=== PATIENT | female | born 2000 | race Caucasian/White ===

== ENCOUNTER 2019-05-29 00:41 | Emergency (ER) | payer OTHER, SELFPAY ==
--- NOTE | ~2019-05-29 | XR_ITS ---
EXAMINATION: XR abdomen/kub 1V DATE: 05/29/2019 02:30 INDICATION: Left flank pain. TECHNIQUE: A supine view of the abdomen on 2 radiographs was obtained. COMPARISON: CT abdomen and pelvis 05/29/2019 FINDINGS: There are no dilated loops of bowel. There is a 3 mm stone in proximal left ureter. IMPRESSION: 1. 3 mm stone in proximal left ureter. Reviewed, dictated and finalized at location A. OPERATIONS SPECIALIST
--- NOTE | ~2019-05-29 | CT_ITS ---
EXAMINATION: CT abdomen pelvis wo con DATE: 05/29/2019 01:52 INDICATION: Left flank pain. TECHNIQUE: Computed tomography (CT) of the abdomen and pelvis was performed without intravenous contr ast. Automated exposure control and iterative reconstruction technique were employed. The dose-length product was 346.49 mGy-cm. COMPARISON: None. FINDINGS: The visualized portions of the lung bases are clear without pneumonia or pleural effusion. The heart size is normal. No pericardial effusion. The liver, gallbladder, spleen, pancreas, adrenal glands, and right kidney are normal. There is a 2 mm stone in left kidney. There is mild left hydrone phrosis. There is a 3 mm stone in proximal left ureter. There are no dilated loops of bowel. The appe ndix is normal. There is a ring shaped device in the vagina. There are no pathologically enlarged lym ph nodes. There is no free intraperitoneal fluid. There are Schmorl's nodes in the thoracic spine. IMPRESSION: 1. 3 mm stone in proximal left ureter with mild left hydronephrosis. 2. 2 mm nonobstructing left kidney stone. Reviewed, dictated and finalized at location A. E OPERATOR
[2019-05-29 00:45] VITALS: BP 132/74; PULSE 75; RESP 25; TEMP 36.7; O2SAT 100
--- NOTE | 2019-05-29 01:07 | ED.ABDPAIN ---
HPI - Abdominal Pain General Chief Complaint: Abdominal Pain Stated Complaint: ABD pain Time Seen by Provider: 05/29/19 01:07 History of Present Illness HPI narrative: The pt is a 19 y/o female who presents to the ED with c/o LLQ ABD pain that began 1 hour ago. The pt states that she woke up in pain tonight, describing it as a sharp pain that radiates to her back. She reports hematuria, vomiting, and nausea, but denies dysuria or fever. The pt has a PMHx of a UTI and kidney stones which she normally passes on her own. She does not see a urologist but does see Earline Linares PA-C. She has a SHx of wisdom teeth extraction but denies any ABD surgery. Her LKMP was 4 weeks ago. The pt has a Nuva ring and states that there is no chance of . MD elicited complaint: abdominal pain (LLQ) Pertinent past history: kidney stones and past UTI Onset (ago): hour(s) (1) Location: LLQ Quality: sharp Radiation: back Associated symptoms: nausea, vomiting and hematuria Related Data Home Medications Medication Instructions Recorded Confirmed No Home Medications 05/29/19 05/29/19 Allergies Allergy/AdvReac Type Severity Reaction Status Date / Time No Known Allergies Allergy Verified 05/29/19 00:47 Review of Systems Review of Systems: Narrative: CONSTITUTIONAL: Denies fever. GASTROINTESTINAL: Reports LLQ abdominal pain, nausea, and vomiting. GENITOURINARY: Reports hematuria. Denies dysuria. All systems reviewed & are unremarkable except as noted in HPI and below PMFSH Past Medical History Medical History (Updated 05/29/19 @ 02:15 by Meena Mcpherson MD) Kidney stones UTI (urinary tract infection) Surgical History Surgical History (Updated 05/29/19 @ 01:23 by Isis Rao) [place] teeth extracted Social History Social History (Updated 05/29/19 @ 01:35 by Isis Rao) Smoking status: Never smoker Gender identity (if verbalized by the patient): Female Exam Narrative: Exam Narrative: GENERAL: Well-nourished and uncomfortable-appearing. HEAD: Normocephalic, atraumatic. EYES: PERRLA and EOMI. ENT: Nares clear, no rhinorrhea or epistaxis. Mucous membranes moist. NECK: Supple. CHEST: Clear to auscultation. No respiratory distress. HEART: Regular rate and rhythm. No murmur heard. Normal peripheral pulses. ABDOMEN: Soft, diffuse ABD tenderness that is worse in LLQ, nondistended, guarding, normal active bowel sounds. EXTREMITIES: Normal range of motion. No edema. SKIN: Warm, dry, no rash. NEURO: No focal deficits. Alert and oriented X3. Course Course Emergency Course: Patient presented to the emergency department for evaluation of left flank pain. Patient has a history of nephrolithiasis, not currently following with a urologist. Patient was given IV pain medication, fluids, antiemetic with good resolution in her pain. Patient has a leukocytosis, no UTI, and a 3 mm left proximal stone. We will obtain a KUB, patient will be given urology follow-up, and was discharged home with pain medication in stable condition. Vital Signs Vital signs: Vital Signs Temperature 36.7 C 05/29/19 00:45 Pulse Rate 75 05/29/19 00:45 Respiratory Rate 25 H 05/29/19 00:45 Blood Pressure 132/74 05/29/19 00:45 Pulse Oximetry 100 05/29/19 00:45 Temperature 36.7 C 05/29/19 00:45 Pulse Rate 75 05/29/19 00:45 Respiratory Rate 25 H 05/29/19 00:45 Blood Pressure 132/74 05/29/19 00:45 Pulse Oximetry 100 05/29/19 00:45 MDM - Abdominal Pain Lab Data Result diagrams: 05/29/19 01:14 05/29/19 01:14 Labs: Lab Results 05/29/19 05/29/19 05/29/19 Range/Units 01:14 01:14 01:16 WBC 13.0 H (4.5-10.0) K/mm3 RBC 4.17 L (4.2-5.4) M/mm3 Hgb 12.1 (12.0-15.0) g/dL Hct 37.0 (37.0-47.0) % MCV 88.7 (80-100) fl MCH 29.0 (26-34) pg MCHC 32.7 (32-36) g/dl RDW 12.5 (11.5-14.5) % Plt Count 294 (150-375) k/mm3 MPV 10.6 H (7.
[2019-05-29] MEDS: DICYCLOMINE HCL INJ 20 MG/2 ML VIAL IM (01:16)
[2019-05-29] MEDS: FAMOTIDINE 20 MG/2 ML VIAL IV PUSH (01:17)
[2019-05-29] MEDS: SODIUM CHLORIDE 0.9% IV 2,000 ML 999 ML IV CONT (01:17)
[2019-05-29] MEDS: ONDANSETRON INJ 4 MG/2 ML VIAL IV PUSH (01:17)
[2019-05-29 01:25] LABS: Basophils Absolute Auto 0.1 K/mm3 (0.0-0.1); Basophils Percent Auto 0.5 % (0.2-1.2); Eosinophils Absolute Auto 0.1 K/mm3 (0-0.3); Hemoglobin 12.1 g/dL (12.0-15.0); Immature Granulocyte Absolute 0.04 K/mm3 (0.00-0.031); Immature Granulocyte Percent A 0.3 % (0-0.5); Lymphocytes Absolute Auto 4.63 K/mm3 (0.9-3.2); Lymphocytes Percent Auto 35.6 % (18.3-44.2); Mean Corpuscular HGB Conc 32.7 g/dl (32-36); Mean Corpuscular Volume 88.7 fl (80-100); Mean Platelet Volume 10.6 fl (7.4-10.4); Monocytes Absolute Auto 0.8 K/mm3 (0.1-0.6); Neutrophils Absolute Auto 7.3 K/mm3 (1.3-6.7); Neutrophils Percent Auto 56.6 % (45.5-73.1); Platelet Count Result 294 k/mm3 (150-375); Red Blood Count 4.17 M/mm3 (4.2-5.4); Red Cell Distribution Width 12.5 % (11.5-14.5)
[2019-05-29 01:33] LABS: Add Urine Microscopic? YES; Appearance Urine Cloudy (Clear); Bacteria Urine Trace /hpf; Bilirubin Urine Negative (Negative); Blood Urine 3+ (Negative); Color Urine Yellow (Yellow); Glucose Urine UA Negative (Negative); Ketones Urine Trace mg/dL (Negative); Leukocyte Esterase Ur Trace LEU/UL (Negative); Mucus Urine Heavy /lpf; Nitrate Urine Negative (Negative); Protein Urine 2+ mg/dL (Negative); RBC Urine >75 /hpf (0-2); Specific Grav Ur 1.025 (1.001-1.035); Squamous Epithelial Cell Urine Moderate /hpf (Few); WBC Urine 0-3 /hpf
[2019-05-29 01:38] LABS: Alanine Aminotransferase 16 U/L (4-35); Albumin Level 3.9 g/dL (3.5-5.1); Alkaline Phosphatase 65 U/L (38-126); Aspartate Amino Transferase 23 U/L (14-36); Bilirubin,Total 0.1 mg/dL (0.2-1.3); Blood Urea Nitrogen 11 mg/dL (7-17); Calcium 8.9 mg/dL (8.4-10.2); Carbon Dioxide 21 mmol/L (22-30); Chloride 103 mmol/L (98-107); Estimated CRCL calculation 107 ml/min; Estimated Glomerular Filt Rate > 60; Glucose 107 mg/dL (65-105); Lipase 152 U/L (23-300); Potassium 3.5 mmol/L (3.4-5.0); Sodium 135 mmol/L (137-145)
[2019-05-29 03:22] VITALS: BP 104/63; PULSE 79; RESP 18; O2SAT 99
== END 2019-05-29 03:25 | disposition home or self-care (01) ==
PROVIDERS: Emergency Provider Emergency Medicine
DX: N13.2 Hydronephrosis with renal and ureteral calculous obstruction (principal); Z87.440 Personal history of urinary (tract) infections
CPT/HCPCS: 36415; 74018; 74176; 80053; 81001; 81025; 83690; 85025; 96361; 96372; 96374; 96375; 99284; J0131; J0500; J2405; J7030

== ENCOUNTER 2020-02-24 07:51 | Outpatient (CLI) | payer OTHER, SELFPAY | END 2020-02-24 07:52 | disposition home or self-care (01) | LOC: ANHAUDIO 07:53 | PROVIDERS: Visit Provider Otolaryngology | DX: H90.3 Sensorineural hearing loss, bilateral (principal); H90.72 Mixed conductive and sensorineural hearing loss, unilateral, left ear, with unrestricted hearing on the contralateral side | CPT/HCPCS: 92557; 92567 ==

== ENCOUNTER 2022-04-15 09:03 | Outpatient (CLI) | payer OTHER, SELFPAY ==
[2022-04-15 10:39] LABS: Basophils Absolute Auto 0.1 K/mm3 (0.0-0.1); Basophils Percent Auto 0.6 % (0.2-1.2); Eosinophils Absolute Auto 0.2 K/mm3 (0-0.3); Eosinophils Percent Auto 1.3 % (0-4.4); Hematocrit 36.6 % (37.0-47.0); Hemoglobin 11.8 g/dL (12.0-15.0); Immature Granulocyte Absolute 0.18 K/mm3 (0.00-0.031); Immature Granulocyte Percent A 1.4 % (0-0.5); Lymphocytes Absolute Auto 1.82 K/mm3 (0.9-3.2); Lymphocytes Percent Auto 14.3 % (18.3-44.2); Mean Corpuscular HGB Conc 32.2 g/dl (32-36); Mean Corpuscular Hemoglobin 29.7 pg (26-34); Mean Corpuscular Volume 92.2 fl (80-100); Mean Platelet Volume 10.3 fl (7.4-10.4); Monocytes Absolute Auto 0.7 K/mm3 (0.1-0.6); Monocytes Percent Auto 5.7 % (2.6-8.5); Neutrophils Absolute Auto 9.7 K/mm3 (1.3-6.7); Neutrophils Percent Auto 76.7 % (45.5-73.1); Platelet Count Result 286 k/mm3 (150-375); Red Blood Count 3.97 M/mm3 (4.2-5.4); Red Cell Distribution Width 13.8 % (11.5-14.5); White Blood Count 12.7 K/mm3 (4.5-10.0)
[2022-04-15 10:50] LABS: Glucose 1 Hour PP 50gm Dose 90 mg/dL
[2022-04-15 11:28] LABS: HIV 1/2 Ab P24 Ag Result Negative (Negative)
[2022-04-20 09:11] LABS: CMV IgG Antibody <0.60 U/mL (<0.60)
== END 2022-04-15 09:04 | disposition home or self-care (01) ==
LOC: ANHLAB 09:05
PROVIDERS: Visit Provider Obstetrics & Gynecology
DX: Z34.90 Encounter for supervision of normal pregnancy, unspecified, unspecified trimester (principal)
CPT/HCPCS: 36415; 82947; 85025; 86644; 86703; 86747; G0432

== ENCOUNTER 2022-04-19 21:37 | Observation (INO) | payer OTHER, SELFPAY ==
[2022-04-19 21:58] VITALS: BP 117/75; PULSE 89
[2022-04-19 22:00] VITALS: BP 122/76; PULSE 95
[2022-04-19 22:54] VITALS: BMI 33.3
--- NOTE | 2022-04-19 23:05 | PC.NURSE ---
[address] Wharton via answering service. [phone] Dr. Wharton returned page. Pt came in after being hit in the abdomen with a volleyball experiencing abdominal cramping. pt states she had a large gush of fluid, ROM plus - negative. FHT reviewed. Orders received to discharge home with instructions on when to return to L&D.
--- NOTE | 2022-04-20 11:09 | PM.OBTRLD ---
OB - Triage/Final Diagnosis Visit Information Reason for evaluation: threatened labor Comments/Additional reasons for admission: I have assessed the risk for this patient, Chinyere Terry, and determined that she would benefit from observation care. Evaluation Vital signs: Vital Signs - 24 hr 04/19/22 21:58 04/19/22 22:00 Pulse Rate 89 95 Blood Pressure 117/75 122/76
== END 2022-04-19 23:01 | disposition home or self-care (01) ==
PROVIDERS: Admitting Provider Obstetrics & Gynecology; Visit Provider Obstetrics & Gynecology
DX: O47.03 False labor before 37 completed weeks of gestation, third trimester (principal); Z3A.28 28 weeks gestation of pregnancy
CPT/HCPCS: 59025; G0378; G0379

== ENCOUNTER 2022-07-04 05:22 | Observation (INO) | payer OTHER, SELFPAY ==
--- NOTE | 2022-07-04 03:09 | OBADM ---
This patient, Chinyere Terry, admitted to the OB room Labor/Delivery/Recovery 105 for observation. Patient/family oriented to hospital policies and general routines including ID bracelet, bed and alarms, visiting hours, pain management, procedures, bathroom and other care routines, personal items, smoking policy, room service/diet, and visiting hours. Patient/Family are encouraged to report perceived risks to care and to ask questions if they do not understand what they are told or what they should do.
[2022-07-04 04:00] VITALS: BMI 37.0
--- NOTE | 2022-07-04 05:13 | PC.NURSE ---
Notified Sarath Dash CNM of patient unchanged SVE. Patient contractions and FHT tracing reviewed. VSS. Discharge orders received.
--- NOTE | 2022-07-04 05:48 | PC.NURSE ---
Discharge instructions reviewed with patient, patient denies any questions. Labor precautions reviewed with patient. Patient states understanding of discharge instructions and is agreeable to discharge. Patient instructed to follow up at her regular OB appointment today at [address] Black. Patient left ambulating
--- NOTE | 2022-07-04 09:09 | PM.OBTRLD ---
OB - Triage/Final Diagnosis Visit Information Reason for evaluation: threatened labor Comments/Additional reasons for admission: I have assessed the risk for this patient, Chinyere Terry, and determined that she would benefit from observation care. Evaluation Vital signs: Vital Signs - 24 hr 07/04/22 04:00 Oxygen Delivery Room Air
== END 2022-07-04 05:48 | disposition home or self-care (01) ==
PROVIDERS: Admitting Provider Advanced Practice Midwife; Visit Provider Student in an Organized Health Care Education/Training Program
DX: O47.1 False labor at or after 37 completed weeks of gestation (principal); Z3A.39 39 weeks gestation of pregnancy
CPT/HCPCS: G0378; G0379

== ENCOUNTER 2022-07-05 00:38 | Inpatient (IN) | payer OTHER, SELFPAY ==
[2022-07-05] VITALS (289 sets, daily range): BP systolic 90–158; BP diastolic 42–118; PULSE 64–200; TEMP 36.6–37.9; O2SAT 88–100; BMI 36.9
[2022-07-05 04:22] LABS: Basophils Absolute Auto 0.1 K/mm3 (0.0-0.1); Basophils Percent Auto 0.4 % (0.2-1.2); Eosinophils Percent Auto 0.1 % (0-4.4); Hemoglobin 13.1 g/dL (12.0-15.0); Immature Granulocyte Absolute 0.13 K/mm3 (0.00-0.031); Immature Granulocyte Percent A 0.8 % (0-0.5); Lymphocytes Absolute Auto 1.32 K/mm3 (0.9-3.2); Lymphocytes Percent Auto 8.4 % (18.3-44.2); Mean Corpuscular HGB Conc 32.8 g/dl (32-36); Mean Corpuscular Hemoglobin 29.3 pg (26-34); Mean Corpuscular Volume 89.5 fl (80-100); Mean Platelet Volume 11.4 fl (7.4-10.4); Monocytes Absolute Auto 0.5 K/mm3 (0.1-0.6); Monocytes Percent Auto 3.3 % (2.6-8.5); Neutrophils Absolute Auto 13.7 K/mm3 (1.3-6.7); Platelet Count Result 267 k/mm3 (150-375); Red Blood Count 4.47 M/mm3 (4.2-5.4); Red Cell Distribution Width 13.9 % (11.5-14.5); White Blood Count 15.8 K/mm3 (4.5-10.0)
[2022-07-05 05:31] LABS: Hepatitis B Surface Antigen Negative (Negative)
[2022-07-05] MEDS: fentaNYL CITRATE INJ (*CRX) 100 MCG/2 ML VIAL IV PUSH (05:46)
--- NOTE | 2022-07-05 06:00 | LDADM ---
This patient, Chinyere Terry, was admitted to Labor/Delivery/Recovery 104 on 07/05/22 at 00:38. Plans for labor, pain management and were discussed with patient. Patient/family oriented to hospital policies and general routines including ID bracelet, bed and alarms, visiting hours, pain management, procedures, bathroom and other care routines, personal items, smoking policy, room service/diet and guest tray routines, infant security routines, and visiting hours. Patient/Family are encouraged to report perceived risks to care and to ask questions if they do not understand what they are told or what they should do. See OBIX for further documentation.
[2022-07-05] MEDS: LACTATED RINGERS 1,000 ML 125 ML IV CONT ×4 (06:08→19:10)
--- NOTE | 2022-07-05 06:27 | WPDANESEPP ---
Anes - Eval Pre Procedure Procedure: labor epidural Date/Time: 07/05/22 06:27 Surgeon: kendra Preop Diagnosis: pain during labor Pre Op Diagnosis: Contractions Patient Data Age: 22 Gender: F Height: 1.7 m Weight: 107 kg Last Vital Signs Pulse 100 07/05/22 04:01 BP 129/62 07/05/22 04:01 O2 Del Method Room Air 07/05/22 04:00 Allergies Allergy/AdvReac Type Severity Reaction Status Date / Time No Known Allergies Allergy Verified 07/04/22 15:38 Home Medications Medication Instructions Recorded Confirmed Type prenat.vits,april,[id number] 1 tablet PO DAILY 02/18/22 06/13/22 History Laboratory Tests 07/05/22 07/05/22 07/05/22 04:10 04:10 04:10 WBC 15.8 K/mm3 H K/mm3 (4.5-10.0) RBC 4.47 M/mm3 M/mm3 (4.2-5.4) Hgb 13.1 g/dL g/dL (12.0-15.0) Hct 40.0 % % (37.0-47.0) MCV 89.5 fl fl (80-100) MCH 29.3 pg pg (26-34) MCHC 32.8 g/dl g/dl (32-36) RDW 13.9 % % (11.5-14.5) Plt Count 267 k/mm3 k/mm3 (150-375) MPV 11.4 fl H fl (7.4-10.4) Immature Gran % (Auto) 0.8 % H % (0-0.5) Neut % (Auto) 87.0 % H % (45.5-73.1) Lymph % (Auto) 8.4 % L % (18.3-44.2) [place] % (Auto) 3.3 % % (2.6-8.5) Eos % (Auto) 0.1 % % (0-4.4) Baso % (Auto) 0.4 % % (0.2-1.2) Lymph # (Auto) 1.32 K/mm3 K/mm3 (0.9-3.2) [place] # (Auto) 0.5 K/mm3 K/mm3 (0.1-0.6) Eos # (Auto) 0.0 K/mm3 K/mm3 (0-0.3) Baso # (Auto) 0.1 K/mm3 K/mm3 (0.0-0.1) Abs Immat Gran (auto) 0.13 K/mm3 H K/mm3 (0.00-0.031) Absolute Neuts (auto) 13.7 K/mm3 H K/mm3 (1.3-6.7) Absolute Nucleated RBC 0.0 K/mm3 K/mm3 (0.0-0.012) Nucleated RBC % 0.0 % % (0.0-0.2) RPR Pending Hep Bs Antigen Blood Type A Positive Antibody Screen Pending 07/05/22 04:10 WBC RBC Hgb Hct MCV MCH MCHC RDW Plt Count MPV Immature Gran % (Auto) Neut % (Auto) Lymph % (Auto) [place] % (Auto) Eos % (Auto) Baso % (Auto) Lymph # (Auto) [place] # (Auto) Eos # (Auto) Baso # (Auto) Abs Immat Gran (auto) Absolute Neuts (auto) Absolute Nucleated RBC Nucleated RBC % RPR Hep Bs Antigen Negative (Negative) Blood Type Antibody Screen Patient hx anesthesia problems: none Family hx anesthesia problems: none Results Review: All pre-operative results and documents have been reviewed as part of the pre-operative evaluation. [facility] Past Medical History Medical History Kidney stones UTI (urinary tract infection) Surgical History Surgical History H/O brain surgery 04/2020 [place] teeth extracted Family History Family History Other Unknown family medical history Social History Social History Smoking status: Never smoker Second hand tobacco smoke exposure: No Alcohol intake: never Substance use: never Substance use type: does not use Lack of Transportation: No Lack of Food: Never True Current Housing: I Have Housing Concerned About Future Housing: Decline to Answer Difficulty Paying Gas/Electric Bills: No Difficulty Paying for Meds: No Currently Unemployed: No Education: Bachelor's Degree Difficulty w/ Childcare or Family Care: No Living arrangements: with family Occupation/Education: occupation Gender identity (if verbalized by the patient): Female Sexual Orientation (if Verbalized by the Patient): Straight or Heterosexual Spiritual care concerns:
[2022-07-05] MEDS: OXYTOCIN 30 UNITS/NS 500 ML 30 UNITS/500 ML BAG 6 UNITS IV CONT (08:59)
[2022-07-05 10:35] LABS: Rapid Plasma Reagin Non-Reactive (NonReactive)
--- NOTE | 2022-07-05 15:19 | WPDHPUPDATE1 ---
History and Physical Update Update Date/Time: 07/05/22 15:19 22-year-old at 39w5d who presents in labor. Patient had been having contractions x1 day. Patient reported pain that was 8/10. Cervix had progressed to 2 cm. Patient having regular contractions on the monitor. History and Physical has been reviewed, including an updated exam of the patient. There are NO changes in the patient's condition. Risks, benefits, and alternatives have been discussed and questions answered. Patient agrees to proceed with procedure. A/P: Admit to L&D Routine admission orders labs reviewed Rh positive GBS negative Admit for expectant management Will augment with Pitocin and AROM as necessary Continuous external monitoring Patient may have epidural as needed
[2022-07-05] MEDS: ONDANSETRON INJ 4 MG/2 ML VIAL IV PUSH (16:33)
[2022-07-05] MEDS: diphenhydrAMINE HCl INJ 50 MG/ML VIAL 25 MG IV PUSH (17:31)
[2022-07-05] MEDS: AMPICILLIN 2 GM/NS 100 ML 2 GM/100 ML BAG IVPB (19:10)
[2022-07-05] MEDS: GENTAMICIN 80MG/SOD CHL 50 ML 80 MG/50 ML BAG 100 MG IVPB (20:12)
[2022-07-05] MEDS: AMPICILLIN 1 GM/NS 50 ML 1 GM/50 ML BAG IVPB (23:16)
[2022-07-06] VITALS (101 sets, daily range): BP systolic 82–143; BP diastolic 48–89; PULSE 67–231; RESP 16–18; TEMP 36.3–38.2; O2SAT 90–100
[2022-07-06] MEDS: LACTATED RINGERS 1,000 ML 125 ML IV CONT (03:10)
[2022-07-06] MEDS: DEXTROSE 5%/LACTATED RINGERS 1,000 ML 500 ML IV CONT (04:00)
[2022-07-06] MEDS: SODIUM CHLORIDE 0.9% IV 300 ML 600 ML I-UTERINE (04:00)
--- NOTE | 2022-07-06 07:11 | PM.OBPRVD ---
OB - Delivery Note Procedure Procedure: Patient pushed for a spontaneous vaginal delivery. The fetus was delivered atraumatically and placed on the maternal abdomen. The cord was clamped and cut after 1 minute of life. The cord was double clamped and cut and a segment of cord was collected for cord gases. Cord blood was collected for blood type and Coomb's testing. The placenta delivered spontaneously and was noted to be intact. The perineum was inspected and there was a 2nd degree perineal laceration. The laceration was repaired with 2-0 vicryl in the usual fashion. The uterus was firm and good hemostasis was noted. The patient and fetus were stable in the delivery room. Delivery augmentation: Rupture of Membranes and Pitocin Delivery monitor: External FHT Route of delivery: Episiotomy description: None Laceration Description: Perineal - 2nd Degree Delivery repair: vicryl Specimen: No Quantitative Blood Loss (ml): 300 Anesthesia type: Epidural Disposition: Floor () Complications: No immediate complications Baby Date of : 07/06/22 Time of : 06:51 Weeks of gestation at delivery: 39 Infant gender: Female Weight (pounds): 8 Weight (ounces): 7 presentation: vertex position: Right Occiput Anterior Placenta delivery description: Spontaneous Cord Vessel Description: 3 Vessels score one minute: 8 score five minutes: 9 AMG Delivery Billing Delivery Delivery: Delivery Charge
[2022-07-06] MEDS: OXYTOCIN 30 UNITS/NS 500 ML 30 UNITS/500 ML BAG 125 UNITS IV CONT (07:20)
[2022-07-06] MEDS: IBUPROFEN 600 MG TABLET PO ×2 (08:05→19:50)
[2022-07-06] MEDS: WITCH HAZEL 40 PADS 1 PAD TOPICAL (09:17)
[2022-07-06] MEDS: BENZOCAINE 20% AER SPR (*SP) 56 GM CAN 1 SPRAY TOPICAL (09:17)
--- NOTE | 2022-07-06 09:31 | PC.NURSE ---
Patient transferred to post room #287 via (w/c ). Support person present. Oriented to unit, room, information board, rooming in, admission packet and security measures. Patient verbalizes understanding.
[2022-07-06] MEDS: ACETAMINOPHEN 325 MG TABLET 650 MG PO ×2 (09:55→23:40)
[2022-07-06] MEDS: LANOLIN (LANSINOH) 7.5 GM CREAM 1 APPLIC TOPICAL (09:55)
[2022-07-06] MEDS: DOCUSATE SODIUM 100 MG CAPSULE PO ×2 (09:55→16:37)
[2022-07-06] MEDS: MULTIVIT/MIN/PREN/FOL AC/IRON TABLET 1 TAB PO (09:55)
[2022-07-07 04:20] VITALS: BP 110/68; PULSE 77; RESP 16; TEMP 36.5
[2022-07-07] MEDS: IBUPROFEN 600 MG TABLET PO (04:24)
[2022-07-07 05:15] LABS: Hematocrit 28.6 % (37.0-47.0); Hemoglobin 9.3 g/dL (12.0-15.0)
--- NOTE | 2022-07-07 06:55 | PM.OBDSVD ---
DS: Admitting Diagnosis Discharge Date 07/07/22 Admitting Diagnosis intrauterine at term DS: Discharge Diagnosis Discharge Diagnosis (1) Supervision of high risk , unspecified, third trimester: Code(s): O09.93 - Supervision of high risk , unspecified, third trimester Status: Acute OB - DS: Summary OB Procedures : None OB Procedures Intrapartum: Spontaneous Vag Delivery OB Procedures: : None Status at Discharge Functional status at discharge: independent ambulation Overall status at discharge: patient is back to baseline Time Spent with Patient Time attestation: Total time spent providing and/or coordinating discharge services: Time spent: Less than 30 minutes Exam Const: General: comfortable and no acute distress Resp: Effort & Inspection: normal respiratory effort Auscultation: clear to auscultation bilaterally Cardio: Rate: regular rate GI: GI Palp: Yes Soft to palpation Auscultation: normal bowel sounds Other: Fundus firm below umbilicus Psych: Appearance: grossly normal Mental Status: mental status grossly normal Affect: normal affect DS: Data Data Completed and Pending Pending studies at discharge: Pending at discharge 07/06/22 09:44 Surgical [PTH] Routine Labs on day of discharge: Labs from last 24 hours 07/07/22 04:29 Hgb 9.3 L D Hct 28.6 L Discharge Plan Discharge Attending physician on discharge: Al Black Discharging Clinician: Al Black Patient Disposition: Home, Self-Care Activity: as tolerated and pelvic rest Diet: regular Patient Instructions: Antibiotic Form, Vaginal Delivery (DC) Stand Alone Forms: General Discharge Information Follow-up/Referrals: Al Black MD [Physician] - Discharge Medications: New ibuprofen 600 mg Tablet 600 mg PO Q6H PRN (Reason: Cramping) Qty: 30 0RF polysaccharide iron complex 150 mg iron Capsule 150 mg PO BIDWM Qty: 60 0RF acetaminophen [Mapap (acetaminophen)] 325 mg Tablet 650 mg PO Q6H PRN (Reason: Mild Pain (1-3) Or Headache) Qty: 30 0RF Continued prenat.vits,april,qgh-elxl-jokii Tablet 1 tablet PO DAILY Date of admission: 07/05/22 00:38 Primary Care Provider: PHYSICIAN,SALES HUNTER Admitting Provider: Al Black Attending physician on admission: Al Black Condition: Stable
[2022-07-07] MEDS: DOCUSATE SODIUM 100 MG CAPSULE PO (08:29)
[2022-07-07] MEDS: POLYSACCHARIDE IRON COMPLEX 150 MG CAPSULE PO (08:29)
[2022-07-07 08:30] VITALS: BP 107/59; PULSE 72; RESP 16; TEMP 36.8; O2SAT 99
[2022-07-07] MEDS: MULTIVIT/MIN/PREN/FOL AC/IRON TABLET 1 TAB PO (08:30)
--- NOTE | 2022-07-07 12:28 | WPDANLDPN2 ---
Anes-Prog Note L&D Date/Time: 07/07/22 12:28 Comfortable throughout: labor Neuraxial method: epidural Epidural/Spinal procedure site: clean & non-tender Neuro status: Neuro function grossly intact. Cardiovascular status: normal Respiratory status: normal Airway patency: baseline Mental status: baseline Post-Op hydration status: normal Vital Signs: Last Vital Signs Temp 36.8 C 07/07/22 08:30 Pulse 72 07/07/22 08:30 Resp 16 07/07/22 08:30 BP 107/59 L 07/07/22 08:30 Pulse Ox 99 07/07/22 08:30 O2 Del Method Room Air 07/07/22 08:25 Pain score (VAS): 0 I/O: Intake & Output 07/06/22 07/07/22 07/07/22 23:59 07:59 15:59 Intake Total 400 Balance 400 Patient feedback: Patient satisfied with anesthetic care.
--- NOTE | 2022-07-07 14:38 | PC.NURSE ---
[id number] Introductions were made, then consulted with patient to assess needs related to . Mother led the conversation with her?plans to feed?her infant and she is confident in latching her effectively without pain. Resources provided for inpatient and outpatient services with the feeding sheet, mom/baby guide and name written on the white board. Mother voiced understanding of information and will call out for the next for assessment. Reported to the primary RN. [id number] Mother verbalizes she is able to independently latch infant with appropriate positioning/alignment. She denies any nipple discomfort and is responsively . Infant is currently meeting outcomes for weight, output, jaundice and feeding frequencies of 8-12 times in 24 hours. Mother demonstrates latching her infant and minor position changes were made that improved the comfort of . Mother is confident in her ability to independently latch infant optimally without discomfort. Reminded mother to use good handwashing technique to prevent infection. Mother is feeding appropriately for growth of and understands stimulating infant to eat if needed. has had appropriate feedings in the last 24 hours meets the outcomes for weight, output and jaundice at this time. Reinforced understanding of milk production, transition of milk, signs of adequate intake, transition of stool, hand expression, prevention/relief of engorgement, responsive watching for feeding cues, the different methods of stimulating to breastfeed 2-3 hours after the start of the last feeding, community resources, medication information reviewed per [facility] and when to call a provider using the resource of the mom and baby guide/[facility] website. Mother voiced understanding of the education shared. Reported to the primary RN.
[2022-07-08 09:56] VITALS: BP 125/69; PULSE 83; RESP 16; TEMP 36.6; O2SAT 99
== END 2022-07-07 13:50 | disposition home or self-care (01) | DRG 805 ==
LOC: ANHLDR 04:49 → ANHOB2 07-06 09:33
PROVIDERS: Admitting Provider Obstetrics & Gynecology; Visit Provider Student in an Organized Health Care Education/Training Program
DX: O77.0 Labor and delivery complicated by meconium in amniotic fluid (principal); O41.1230 Chorioamnionitis, third trimester, not applicable or unspecified; Z37.0 Single live birth; Z3A.39 39 weeks gestation of pregnancy; O70.1 Second degree perineal laceration during delivery
CPT/HCPCS: 36415; 85014; 85018; 85025; 86592; 86850; 86900; 86901; 87340; 88307; A9270; J0131; J0290; J1200; J1580; J2405; J2590; J2795; J3010; J7030; J7120; J7121

== ENCOUNTER 2024-02-27 09:00 | Outpatient (RCR) | payer OTHER, SELFPAY ==
--- NOTE | 2024-01-12 15:44 | OPREHPOC ---
Outpatient Therapy Plan of Care This is a Multidisciplinary Plan of Care that may contain components documented by all disciplines (PT, OT, and ST.) PT Problem 1 PT Problem #1 Knowledge Deficit PT Goal 1 Goal / Goal Update [place] with HEP Target Visit 4 PT Problem 2 PT Problem #2 Impaired Visual Perceptio PT Goal 1 Goal / Goal Update Demonstrate ability to elevate L zygomatic to perform smile for oral control Target Visit 8 PT Goal 2 Goal / Goal Update Patient will demonstrate ability to active close left eye Target Visit 8 PT Problem 3 PT Problem #3 Impaired Balance PT Goal 1 Goal / Goal Update Demonstrate ability to maintain balance on uneven surface with eyes closed for 30 seconds without LOB for vestibular control improvement Target Visit 8 PT Problem 4 PT Problem #4 Impaired Range of Motion PT Goal 1 Goal / Goal Update Improve don cervical rotation to 70 degrees to improve visual tracking ability Target Visit 8
--- NOTE | 2024-01-12 15:44 | PTOPEVAL1 ---
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 Denies balance problems prior to surgery. Her initial surgery was 2019. She has history of sense of balance loss. Feels that that is okay at this point. She is unable to close her eye and has been taping it closed to help out. Most concerned at this time about facial muscle control. 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 Some cervical loss of ROM and discomfort is present and she has notable loss of balance with isolated vestibular challenging. Patient will benefit form skilled therapy to address these deficits for balance and motor control training following recovery from acoustic neuroma removal. Plan of Care Interventions Electrical Stimulation,Gait Training,Hot Pack/Cold Pack,Manual Therapy,Neuro Re-education, Therapeutic Activities,Therapeutic Exercise PT Services Indicated Yes Treatment Frequency and 1-2x/week for 8 visits Duration These treatments will address the objective and functional deficits as defined above. The patient will be advanced safely and appropriately in order for the patient to progress towards his/her prior level of function. Additional exercises will be introduced and as well as a comprehensive home exercise program upon discharge, if needed, ?to ensure carryover of functional gains achieved in the clinic. This treatment plan has been reviewed and agreement upon by the patient.
--- NOTE | 2024-01-26 15:47 | PCPTNOTE ---
Patient cancelled today's visit secondary to not feeling well. Father contacted clinic.
--- NOTE | 2024-02-27 10:05 | OPREHPOC ---
Outpatient Therapy Plan of Care This is a Multidisciplinary Plan of Care that may contain components documented by all disciplines (PT, OT, and ST.) PT Problem 1 PT Problem #1 Knowledge Deficit PT Goal 1 Goal / Goal Update [place] with HEP Target Visit 4 Progress Met PT Problem 2 PT Problem #2 Impaired Visual Perceptio PT Goal 1 Goal / Goal Update Demonstrate ability to elevate L zygomatic to perform smile for oral control Target Visit 12 Progress Not Met PT Goal 2 Goal / Goal Update Patient will demonstrate ability to active close left eye Target Visit 12 Progress Not Met PT Problem 3 PT Problem #3 Impaired Balance PT Goal 1 Goal / Goal Update Demonstrate ability to maintain balance on uneven surface with eyes closed for 30 seconds without LOB for vestibular control improvement Target Visit 8 Progress Met PT Problem 4 PT Problem #4 Impaired Range of Motion PT Goal 1 Goal / Goal Update Improve don cervical rotation to 70 degrees to improve visual tracking ability Target Visit 8 Progress Met
--- NOTE | 2024-02-27 10:06 | PTOPPROG ---
Assessment and note entered by Nitesh Peterson, PT Evaluation Information Assessment Status Progress Diagnosis Acoustic neuroma, Facial Palsy Onset 12/27/23 Subjective Information Reports that overall she is doing better. She believes that her balance and face has improved. She feels a heaviness in her face and was able to feel the chill of the cold air this morning on her face. She has a follow up with Ophthalmology tomorrow. She sees her ENT on 03/07 and Neuro on 03/11. Oncology follow up is on 03/09. Denies any sleeping issues at this time. She has returned to driving and is still having very minor deficits but not enough to be concerned. Assessment PT Clinical Summary Patient has shown improvement in cervical ROM and vestibular balance at this time. She is still mildly unstable with single leg activity and floor retrieval. She continues to have difficulty with eye closure and left side mouth control which continue to be addressed through electrical stimulation. Patient will continue to benefit form skilled therapy to reach [facility] goals. Plan of Care Interventions Electrical Stimulation,Gait Training,Hot Pack/Cold Pack,Manual Therapy,Neuro Re-education, Therapeutic Activities,Therapeutic Exercise PT Services Indicated Yes Treatment Frequency and 1x/Every other week for 4 visits Duration These treatments will address the objective and functional deficits as defined above. The patient will be advanced safely and appropriately in order for the patient to progress towards his/her prior level of function. Additional exercises will be introduced and as well as a comprehensive home exercise program upon discharge, if needed, ?to ensure carryover of functional gains achieved in the clinic. This treatment plan has been reviewed and agreement upon by the patient.
--- NOTE | 2024-03-15 16:25 | PCPTNOTE ---
Patient was a No Show/No Call for today's appointment.
--- NOTE | 2024-04-09 08:39 | PCPTNOTE ---
Patient father called to cancel appointment this date. I called and left message for patient to return call to discuss plan of care. Will await response.
== END 2024-04-08 23:59 | disposition home or self-care (01) ==
LOC: ANHGOSHPT 09:00
DX: D33.3 Benign neoplasm of cranial nerves (principal)
CPT/HCPCS: 97110; 97112; 97116; 97140; 97161